=== PATIENT | male | born 1965 | race Caucasian/White ===

== ENCOUNTER 2018-01-23 16:28 | Emergency (ER) | payer SELFPAY ==
[2018-01-23 16:56] VITALS: BP 136/91
[2018-01-23] MEDS ORDERED: metroNIDAZOLE 500 MG TABLET PO ONE (16:56)
[2018-01-23] MEDS ORDERED: CIPROFLOXACIN HCL 500 MG TABLET PO ONE (16:57)
[2018-01-23] MEDS ORDERED: AZITHROMYCIN 250 MG TABLET PO ONE ×2 (17:05→17:06)
--- NOTE | 2018-01-23 17:08 | ED Physician Documentation ---
General Adult - HISTORIAN Historian: patient - HPI Stated Complaint: burning on urination Chief Complaint: General Adult Onset: days ago (3) Timing: still present Severity: moderate Further Comments: yes (Pt is a 52 yo male with dysuria, frequency and urgency x 3 days. No back pain. No fever. No n/v.) - ROS CONST: no problems EYES/ENT: none CVS/RESP: none GI/: problems urinating - PAST HX Past History: none Allergies/Adverse Reactions: Allergies Allergy/AdvReac Type Severity Reaction Status Date / Time No Known Allergies Allergy Verified 01/23/18 16:58 Home Medications: Ambulatory Orders Medication Instructions Recorded Sulfamethoxazole/Trimethoprim 1 each PO BID #14 tab 01/23/18 [Bactrim Ds] - SOCIAL HX Smoking History: cigarettes Drug Use: marijuana - FAMILY HX Family History: No - VITAL SIGNS Vital Signs: Vital Signs Temp Pulse Resp BP Pulse Ox 97.9 F 82 18 136/91 94 01/23/18 16:47 01/23/18 16:47 01/23/18 16:47 01/23/18 16:47 01/23/18 16:47 - REVIEWED ASSESSMENTS Nursing Assessment Reviewed: Yes Vitals Reviewed: Yes Progress - Progress Progress: Rocephin 250 mg IM Azithromycin 1 gm po Rx Bactrim DS 1 po q 12h x 7 days. GC/Chlamydia (urine) - pending ED Results Lab/Radiology - Orders Orders: ED Orders Category Date Time Status GC [CHLAMYDIA & GONORRHOEAE] Stat Lab 01/23/18 16:50 Ordered UDS [DRUG SCREEN URINE MEDICAL ONLY] Routine Lab 01/23/18 Ordered URINALYSIS Routine Lab 01/23/18 Ordered Azithromycin [Zithromax] Med 01/23/18 17:06 Once 1,000 mg PO NOW ONE Ciprofloxacin HCl [Cipro] Med 01/23/18 16:57 Stop Req 500 mg PO NOW ONE cefTRIAXone SODIUM [Rocephin] Med 01/23/18 16:58 Discontinued 250 mg IM NOW ONE metroNIDAZOLE [Flagyl] Med 01/23/18 16:56 Stop Req 500 mg PO NOW ONE General Adult Physical Exam - PHYSICAL EXAM GENERAL APPEARANCE: mild distress EENT: pharynx normal NECK: normal inspection, supple RESPIRATORY: no resp distress, chest non-tender, breath sounds normal CVS: reg rate & rhythm, heart sounds normal ABDOMEN: soft, no organomegaly, normal bowel sounds BACK: normal inspection, no CVA tenderness SKIN: warm/dry, normal color EXTREMITIES: non-tender, normal range of motion, no evidence of injury NEURO: oriented X3, motor nml, sensation nml Discharge Clincal Impression: UTI (urinary tract infection) Qualifiers: Urinary tract infection type: site unspecified Hematuria presence: without hematuria Qualified Code(s): N39.0 - Urinary tract infection, site not specified Prescriptions: Sulfamethoxazole/Trimethoprim [Bactrim Ds] 1 each PO BID #14 tab Referrals: Primary Doctor,No [Primary Care Provider] - Condition: Good Disposition: 01 HOME, SELF-CARE Decision to Admit: NO Decision Time: 17:10
[2018-01-24 07:09] LABS: CANNABINOIDS NON NEGATIVE ng/mL (< 50)
[2018-01-24 07:10] LABS: METHYLENEDIOXYMETHAMPHETAMINE NON NEGATIVE ng/mL (<500)
[2018-01-24 07:12] LABS: APPEARANCE,URINE CLOUDY (CLEAR); COLOR,URINE YELLOW (YELLOW); OCCULT BLOOD,URINE 2+ (NEGATIVE); PH URINE 5.5 (5.0 - 8.0); UROBILINOGEN URINE 0.2 Eu (0.2-1.0)
== END 2018-01-23 17:15 | disposition home or self-care (01) ==
LOC: ED 16:28
DX: N39.0 Urinary tract infection, site not specified (principal)
CPT/HCPCS: 80377; 81002; 87086; 87491; 87591; J0696; 96372; 99283; G0481

== ENCOUNTER 2018-12-11 21:18 | Emergency (ER) | payer SELFPAY | END 2018-12-11 21:35 | disposition home or self-care (01) | LOC: ED 21:18 | DX: K04.7 Periapical abscess without sinus (principal) | CPT/HCPCS: 99281; 99283 ==